=== PATIENT | female | born 1990 | race Caucasian/White ===

== ENCOUNTER → 2019-06-08 14:36 | Outpatient (BNVA) | payer SELFPAY | PROVIDERS: Family Provider Family Medicine; PCP Family Medicine; Visit Provider Anesthesiology | DX: G89.29 Other chronic pain (principal); M47.812 Spondylosis without myelopathy or radiculopathy, cervical region; M50.00 Cervical disc disorder with myelopathy, unspecified cervical region; M54.9 Dorsalgia, unspecified; F17.210 Nicotine dependence, cigarettes, uncomplicated; Z79.891 Long term (current) use of opiate analgesic | CPT/HCPCS: 99213; 99214 ==

== ENCOUNTER → 2019-08-10 14:23 | Outpatient (BNVA) | payer SELFPAY | PROVIDERS: Family Provider Family Medicine; PCP Family Medicine; Visit Provider Anesthesiology | DX: M50.00 Cervical disc disorder with myelopathy, unspecified cervical region (principal); M47.812 Spondylosis without myelopathy or radiculopathy, cervical region; M54.16 Radiculopathy, lumbar region; F17.210 Nicotine dependence, cigarettes, uncomplicated; Z79.891 Long term (current) use of opiate analgesic; Z71.6 Tobacco abuse counseling | CPT/HCPCS: 99214 ==

== ENCOUNTER → 2019-10-22 09:13 | Outpatient (BNVA) | payer MEDICAID, SELFPAY | PROVIDERS: Family Provider Family Medicine; PCP Family Medicine; Visit Provider Obstetrics & Gynecology | DX: Z30.9 Encounter for contraceptive management, unspecified (principal) | CPT/HCPCS: 81025 ==

== ENCOUNTER → 2019-11-30 12:45 | Outpatient (BNVA) | payer SELFPAY | PROVIDERS: Family Provider Family Medicine; PCP Family Medicine; Visit Provider Anesthesiology | DX: G89.29 Other chronic pain (principal); M50.00 Cervical disc disorder with myelopathy, unspecified cervical region; M47.812 Spondylosis without myelopathy or radiculopathy, cervical region; M54.41 Lumbago with sciatica, right side; M54.42 Lumbago with sciatica, left side; F17.210 Nicotine dependence, cigarettes, uncomplicated; Z79.891 Long term (current) use of opiate analgesic; Z71.6 Tobacco abuse counseling | CPT/HCPCS: 99214 ==

== ENCOUNTER → 2020-02-03 08:11 | Outpatient (BNVA) | payer SELFPAY | PROVIDERS: Family Provider Family Medicine; PCP Family Medicine; Visit Provider Anesthesiology | DX: G89.29 Other chronic pain (principal); M50.00 Cervical disc disorder with myelopathy, unspecified cervical region; M47.812 Spondylosis without myelopathy or radiculopathy, cervical region; F17.210 Nicotine dependence, cigarettes, uncomplicated; Z79.891 Long term (current) use of opiate analgesic | CPT/HCPCS: 99213; 99214 ==

== ENCOUNTER → 2020-03-29 13:08 | Outpatient (BNVA) | payer SELFPAY | PROVIDERS: Family Provider Family Medicine; PCP Family Medicine; Visit Provider Anesthesiology | DX: G89.29 Other chronic pain (principal); M50.00 Cervical disc disorder with myelopathy, unspecified cervical region; M47.812 Spondylosis without myelopathy or radiculopathy, cervical region; F17.210 Nicotine dependence, cigarettes, uncomplicated; Z79.891 Long term (current) use of opiate analgesic | CPT/HCPCS: 99212; 99214 ==

== ENCOUNTER → 2020-05-31 13:20 | Outpatient (BNVA) | payer SELFPAY | PROVIDERS: Family Provider Family Medicine; PCP Family Medicine; Visit Provider Anesthesiology | DX: G89.29 Other chronic pain (principal); M50.00 Cervical disc disorder with myelopathy, unspecified cervical region; M47.812 Spondylosis without myelopathy or radiculopathy, cervical region; M54.42 Lumbago with sciatica, left side; F17.210 Nicotine dependence, cigarettes, uncomplicated; Z79.891 Long term (current) use of opiate analgesic | CPT/HCPCS: 99213; 99214 ==

== ENCOUNTER → 2020-07-26 13:30 | Outpatient (BNVA) | payer SELFPAY | PROVIDERS: Family Provider Family Medicine; PCP Family Medicine; Visit Provider Anesthesiology | DX: G89.29 Other chronic pain (principal); M54.42 Lumbago with sciatica, left side; M50.00 Cervical disc disorder with myelopathy, unspecified cervical region; M47.812 Spondylosis without myelopathy or radiculopathy, cervical region; F17.210 Nicotine dependence, cigarettes, uncomplicated; Z79.891 Long term (current) use of opiate analgesic | CPT/HCPCS: 99214 ==

== ENCOUNTER → 2020-09-27 14:13 | Outpatient (BNVA) | payer SELFPAY | PROVIDERS: Family Provider Family Medicine; PCP Family Medicine; Visit Provider Nurse Practitioner | DX: G89.29 Other chronic pain (principal); M50.00 Cervical disc disorder with myelopathy, unspecified cervical region; M47.812 Spondylosis without myelopathy or radiculopathy, cervical region; M54.42 Lumbago with sciatica, left side; R11.0 Nausea; F17.210 Nicotine dependence, cigarettes, uncomplicated; Z79.891 Long term (current) use of opiate analgesic; Z71.6 Tobacco abuse counseling | CPT/HCPCS: 99214 ==

== ENCOUNTER → 2020-09-28 14:58 | Outpatient (BNVA) | payer MEDICAID, SELFPAY | PROVIDERS: Family Provider Family Medicine; PCP Family Medicine; Visit Provider Obstetrics & Gynecology | DX: Z30.9 Encounter for contraceptive management, unspecified (principal) | CPT/HCPCS: 81025 ==

== ENCOUNTER → 2020-11-29 14:29 | Outpatient (BNVA) | payer MEDICAID, SELFPAY | PROVIDERS: Family Provider Family Medicine; PCP Family Medicine; Visit Provider Nurse Practitioner | DX: G89.29 Other chronic pain (principal); M54.42 Lumbago with sciatica, left side; M54.41 Lumbago with sciatica, right side; M50.00 Cervical disc disorder with myelopathy, unspecified cervical region; M47.812 Spondylosis without myelopathy or radiculopathy, cervical region; R11.0 Nausea; F17.210 Nicotine dependence, cigarettes, uncomplicated; Z79.891 Long term (current) use of opiate analgesic; Z71.6 Tobacco abuse counseling | CPT/HCPCS: 99214 ==

== ENCOUNTER → 2021-01-31 15:02 | Outpatient (BNVA) | payer MEDICAID, SELFPAY | PROVIDERS: Family Provider Family Medicine; PCP Family Medicine; Visit Provider Nurse Practitioner | DX: G89.29 Other chronic pain (principal); M54.42 Lumbago with sciatica, left side; M54.41 Lumbago with sciatica, right side; M50.00 Cervical disc disorder with myelopathy, unspecified cervical region; M47.812 Spondylosis without myelopathy or radiculopathy, cervical region; R11.0 Nausea; F17.210 Nicotine dependence, cigarettes, uncomplicated; Z79.891 Long term (current) use of opiate analgesic | CPT/HCPCS: 99212; 99214 ==

== ENCOUNTER → 2021-03-28 14:55 | Outpatient (BNVA) | payer MEDICAID, SELFPAY | PROVIDERS: Family Provider Family Medicine; PCP Family Medicine; Visit Provider Anesthesiology | DX: G89.29 Other chronic pain (principal); M54.41 Lumbago with sciatica, right side; M50.00 Cervical disc disorder with myelopathy, unspecified cervical region; M47.812 Spondylosis without myelopathy or radiculopathy, cervical region; F17.210 Nicotine dependence, cigarettes, uncomplicated; Z79.891 Long term (current) use of opiate analgesic; Z71.6 Tobacco abuse counseling | CPT/HCPCS: 99214 ==

== ENCOUNTER → 2021-04-26 13:17 | Outpatient (BNVA) | payer SELFPAY | PROVIDERS: Family Provider Family Medicine; PCP Family Medicine; Visit Provider Anesthesiology | DX: G89.29 Other chronic pain (principal); M54.42 Lumbago with sciatica, left side; M47.812 Spondylosis without myelopathy or radiculopathy, cervical region; M50.00 Cervical disc disorder with myelopathy, unspecified cervical region; F17.210 Nicotine dependence, cigarettes, uncomplicated; F17.200 Nicotine dependence, unspecified, uncomplicated; Z79.891 Long term (current) use of opiate analgesic; Z71.6 Tobacco abuse counseling | CPT/HCPCS: 99214 ==

== ENCOUNTER → 2022-05-08 13:55 | Outpatient (BNVA) | payer SELFPAY | PROVIDERS: Family Provider Family Medicine; PCP Family Medicine; Visit Provider Family Medicine | DX: M54.40 Lumbago with sciatica, unspecified side (principal); G89.29 Other chronic pain; M54.42 Lumbago with sciatica, left side; M47.812 Spondylosis without myelopathy or radiculopathy, cervical region; Z79.891 Long term (current) use of opiate analgesic; M54.2 Cervicalgia; M50.00 Cervical disc disorder with myelopathy, unspecified cervical region; Z11.4 Encounter for screening for human immunodeficiency virus [HIV]; Z11.59 Encounter for screening for other viral diseases | CPT/HCPCS: 80053; 80307; 85025; 86803; 87806 ==

== ENCOUNTER → 2022-05-28 16:53 | Outpatient (BNVA) | payer SELFPAY | PROVIDERS: Family Provider Family Medicine; PCP Family Medicine; Visit Provider Family Medicine | DX: R39.9 Unspecified symptoms and signs involving the genitourinary system (principal); Z79.891 Long term (current) use of opiate analgesic | CPT/HCPCS: 80307; 81000 ==

== ENCOUNTER → 2024-04-19 13:00 | Outpatient (BNVA) | payer OTHER, SELFPAY | PROVIDERS: Family Provider Family Medicine; PCP Family Medicine; Visit Provider Family Medicine | DX: M79.671 Pain in right foot (principal); M79.672 Pain in left foot; M50.00 Cervical disc disorder with myelopathy, unspecified cervical region; M54.2 Cervicalgia; G89.29 Other chronic pain; M54.42 Lumbago with sciatica, left side; M54.41 Lumbago with sciatica, right side; Z79.891 Long term (current) use of opiate analgesic; F17.200 Nicotine dependence, unspecified, uncomplicated; E55.9 Vitamin D deficiency, unspecified; R79.89 Other specified abnormal findings of blood chemistry | CPT/HCPCS: 80053; 80061; 82306; 82607; 84443 ==

== ENCOUNTER → 2024-05-04 15:03 | Outpatient (BNVA) | payer OTHER, SELFPAY | PROVIDERS: Family Provider Family Medicine; PCP Family Medicine; Visit Provider Podiatrist Foot & Ankle Surgery | DX: M79.671 Pain in right foot (principal); M79.672 Pain in left foot; M21.621 Bunionette of right foot; M21.622 Bunionette of left foot | CPT/HCPCS: 73630 ==

== ENCOUNTER 2025-04-13 07:10 | Inpatient (IN) | payer OTHER, MEDICAID, SELFPAY ==
--- OUTSIDE RECORDS SUMMARY | 2024-03-20 03:00 | XMS_ITS ---
Author Organization [facility] Address [address] [place] [address] Care Team Providers Care [facility] Assistant Name Role Phone Pop Jamison Primary Care Provider Unavailabl e Migration, Provider Unavailable Unavailable REASON FOR VISIT [facility] Encounters Encounter Location Date Provider Diagnosis Migrated_Facility 0 0 03/20/2024 Provider Migration Plan Of Treatment No Information Progress Notes * Carol BERTRANDDOB:1990 (35 yo F)Acc No.[id number]:03/20/2024 Patient: Carol HESS :1990 A ge:34 Y S ex:Female Address:[address] [place] [address], [id number] Subjective: * Chief Complaints: * E MR-[facility]ain * * Date:
--- OUTSIDE RECORDS SUMMARY | 2024-03-21 03:00 | XMS_ITS ---
Author Organization [facility] Address [address] [place] [address] Care Team Providers Care Assistant Customer Service Manager Name Role Phone Pop Jamison Primary Care Provider Unavailabl e Migration, Provider Unavailable Unavailable REASON FOR VISIT [facility] Encounters Encounter Location Date Provider Diagnosis Migrated_Facility 0 0 03/21/2024 Provider Migration Plan Of Treatment No Information Progress Notes * Carol BERTRANDDOB:1990 (35 yo F)Acc No.[id number]:03/21/2024 Patient: Carol HESS :1990 A ge:34 Y S ex:Female Address:[address] [place] [address], [id number] Subjective: * Chief Complaints: * E MR-Hussain * * Date:
[2025-04-13] VITALS (77 sets, daily range): BP systolic 127–180; BP diastolic 66–115; PULSE 64–96; RESP 16–18; TEMP 36.6; O2SAT 96–98; BMI 36.0
--- OUTSIDE RECORDS SUMMARY | 2025-04-13 07:20 | XMS_ITS | Patient Health Record ---
Author Organization [facility] Address [address] [place] [address] Care Team Providers Care Db2 Dba Name Role Phone Pop Jamison Primary Care Provider Unavailabl e Reason For Referral No Information Plan Of Treatment No Information
--- OUTSIDE RECORDS SUMMARY | 2025-04-13 07:20 | XMS_ITS | Data Portability ---
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 She has previously delivered post-term with meconium staining, leading to her current concerns. There is no indication of amniotic fluid loss, and she notes active movements. The discussion involves timing in consideration of the holiday and possible induction if required. [email or web address] Not available 03/01/2025 16:21:53 03/15/2025 03/15/2025 35-year-old mgiuel love with history of presenting for care supervision. The is stable and without new complications. A GBS is scheduled for Group B Streptococcus screening. [email or web address] Not available 03/15/2025 16:32:31 03/22/2025 03/22/2025 35-year-old miguel love with history of a routine obstetric follow-up visit presenting with a need for signing tubal consent. GBS screening is negative with no other concerns reported or observed during this visit. [email or web address] Not available 03/22/2025 15:16:05 03/29/2025 03/29/2025 35-year-old miguel love with history of advanced presenting for routine 39-week follow-up. Reports Doddridge Dutton contractions and increased back pain. Cervical examination indicates 1 cm dilation without significant progression. [email or web address] Not available 03/29/2025 15:33:34 04/05/2025 04/05/2025 35-year-old miguel love with a history of low back pain, presenting with increased low back pain and vaginal pressure. The pain was more severe for approximately two hours but has decreased. Consideration for musculoskeletal strain or potential pre-labor contractions due to the patient's 39 weeks gestation status. [email or web address] Not available 04/06/2025 12:03:24 Plan of Treatment Reminders Order Date Submit Date Provider Last Modified By Organization Details Last Modified Time Details Appointments None recorded. Lab streptococc us group B, culture, vaginal or rectal 2024 025 [email or web address] 23 [employer] [facility], [address] [place] [address] [facility], [address] [place], [address], 11:56:05 Referral None recorded. Procedures None recorded. Surgeries None recorded. Imaging None recorded. Medication Orders None recorded. Patient TargetsNo targets recorded. Patient Instructions Encounter Date Encounter Id Patient Instructions Last Modified By Organization Details Last Modified Time 03/01/2025 [id number] - Monitor movements daily - Be aware of any signs of fluid loss - Plan for potential induction if not delivered by the 39th week - Attend appointments as scheduled - Contact the clinic if there are any changes or concerns [email or web address] Not available 03/01/2025 16:25:33 I discussed with the patient her concerns regarding the timing of her delivery in relation to the upcoming . We explored her history of post-term delivery with meconium-stained amniotic fluid and the risks associated with going past her due date. I explained the potential for scheduling an induction if she does not go into labor naturally by the 39th week, as this is the earliest safe window for intervention. These plans aim to avoid hospitalization during the holiday and address her previous experiences. Continued activity and monitoring were emphasized as part of routine care. [email or web address] Not available 03/01/2025 16:21:56 03/15/2025 [id number] - Come in for yo ur TBS test for Group B Streptococcus. - Continue regular check-ups as planned. - Expect to start coming in for visits weekly as you get closer to your due date. - Call us if you feel any new symptoms or have concerns about your . [email or web address] Not available 03/15/2025 16:28:33 I reviewed the p antwon with the patient, which includes scheduling a TBS to check for any Group B Streptococcus colonization. We discussed the potential need for antibiotics before delivery if results indicate colonization. I explained the importance of this testing and what it could mean for her delivery. The patient expressed understanding and consented to the test. We agreed to increase the frequency of visits to weekly as the delivery approaches, ensuring close monitoring of her . [email or web address] Not available 03/15/2025 16:28:33 03/22/2025 [id number] - Attend weekly follow-up appointments - Monitor for any changes or new symptoms and report if they occur - Understand your options and surgical consent for tubal ligation - Reach out if experiencing any unusual symptoms or concerns [email or web address] Not available 03/22/2025 14:55:03 During the visit , I discussed with the patient the negative GBS screening and the implications for her care. We also reviewed the tubal consent process, confirming her autonomy in making informed decisions about her reproductive health. The option and consent for tubal ligation were comprehensively addressed. The patient's cervix was not accessible during the examination due to the position, which we noted to monitor over subsequent visits. I informed her of the necessity for continued weekly follow-ups at this stage of her obstetric care. [email or web address] Not available 03/22/2025 14:55:04 03/29/2025 [id number] - Rest when experiencing back pain. - Monitor Doddridge Dutton contractions; note any changes in frequency or intensity. - Look for signs of labor such as more regular contractions or bloody show, and contact if noticed. - Return for follow-up as scheduled or if symptoms worsen. [email or web address] Not available 03/29/2025 12:20:13 During the consultation, I discussed the patient's current gestational status and the potential for membrane stripping, explaining that it might assist in initiating labor if the cervix is favorable. I reviewed her experience with Doddridge Dutton contractions, noting that they are common at this stage of , and emphasized monitoring for any changes that might suggest true labor. The patient was reassured regarding the absence of symptoms like spotty vision which could indicate complications, such as preeclampsia. We also discussed measures for managing back pain, recommending rest and supportive posture. The patient understood the information provided and agreed to continue monitoring her symptoms. [email or web address] Not available 03/29/2025 12:20:13 04/05/2025 [id number] - Use a heating pad to alleviate back pain. - Continue normal daily activities and avoid strenuous tasks. - Monitor for regular contractions every 3-5 minutes. - Contact the office if symptoms worsen or new symptoms develop. - Attend the scheduled appointment next Friday. [email or web address] Not available 04/05/2025 09:44:06 During the discussion, I reviewed the potential causes of increased low back pain and vaginal pressure with the patient, considering her 39-week gestational status. I advised monitoring for regular contractions to distinguish between musculoskeletal strain and potential labor. I explained the usage of a heating pad for relief and the maintenance of normal activities. I emphasized the importance of contacting our office if regular contractions develop or if other concerning symptoms appear. We discussed schedule options for the follow-up appointment, and the patient preferred Friday morning next week. All questions were addressed, and consent for the proposed plan was obtained. [email or web address] Not available 04/05/2025 09:44:06 Reason for Referral None Reported. Results Created Date Observation Date Name Description Value Unit Range Abnormal Flag Note LastModifiedBy Organization Detail LastModifiedTime 02/02/2002/01/2025 gluco se desiree ance test, gesta krishna l, 3-yuliya r Fasting 88 Not Available [facility] ([facility]) [address] [place], [address], 01/20/2025 12:09:10 02/02/20 25 02/01/2025 gluco se desiree ance test, gesta krishna l, 3-yuliya r 1-Hour 203 Not Available [facility] ([facility]) [address] [place], [address], 01/20/2025 12:09:10 02/02/20 25 02/01/2025 gluco se desiree ance test, gesta krishna l, 3-yuliya r 2-Hour 130 Not Available [facility] ([facility]) [address] [place], [address], 01/20/2025 12:09:10 02/02/20 25 02/01/2025 gluco se desiree ance test, brooke keller l, 3-yuliya r 3-Hour 61 Not Available [facility] ([facility]) [address] [place], [address], 01/20/2025 12:09:10 03/15/20 25 03/19/2025 STREP TOCOC CUS, GROUP B CULTU RE streptococcu s, group B culture SEE NOTE STREP TOCOC CUS, GROUP B CULTU RE Micro Numbe r: [id number] Test Statu s: Final Speci men Sourc e: Vagin al/an orect al Speci men Quali ty: Adequ ate Resul t: No group B Strep tococ cus isola randal Note per CDC guide lines optim al recov js is achie rocio by swabb ing both the lower vagin a and rectu m (thro ugh the anal sphin cter) . Not Available [employer] [facility] [address] [place], [address], 03/19/2025 09:46:29 Result Notes None recorded. Problems Name Problem SNOMED Code Status Onset Date Resolution Date Notes Provider Name and Address Organization Details Recorded Time Asthma 850837807 Active 2022 Asthma; 3 6:06PM by Fabio Wesley, Office Visit; Promoted; acuity set as *; Not Available [facility] 3 03:07:35 Fracture of humerus 47957632 Active 2022 fx left humerus, internal fixation; 3 6:06PM by Fabio Wesley, Office Visit; Promoted; acuity set as *; Not Available [facility] 3 03:07:37 02066001 Active 2024 Marine Mcgowan [facility] 5 12:24:20 Oligomeno rrhea 55287799 Active 2024 Russell Flores MD [address] [place] [address], [address] , [facility] 13:01:57 Chronic back pain 500924079 Active 2024 Russell Flores MD [address] [place] [address], [address] , [facility] 11:42:52 Blood pressure above reference range 58715691 Active 2024 Russell Flores MD [address] [place] [address], [address] , [facility] 11:45:01 Hypertens ion complicat ing 90983508856 102 Active 2024 Russell Flores MD [address] [place] [address], [address] , [facility] 11:45:04 Gestation period, 21 weeks 08077464 Active 2024 Russell Flores MD [address] [place] [address], [address] , [facility] 13:48:35 Migraine 51893016 Active 2024 Russell Flores MD [address] [place] [address], [address] , [facility] 09:39:50 Gestation period, 25 weeks 24856547 Active 2024 Russell Flores MD [address] [place] [address], [address] , [facility] 09:40:23 Gestation period, 25 weeks 24215923 Active 2024 Russell Flores MD [address] [place] [address], [address] , [facility] 09:40:22 Gestation period, 28 weeks 33684491 Active 2024 Russell Flores MD [address] [place] [address], [address] [place] [address] , [facility] 08:08:13 Gestation period, 28 weeks 55232817 Active 2024 Russell Flores MD [address] [place] [address], [address] , [facility] 5 08:08:13 Gestation period, 30 weeks 53050616 Active 2024 Russell Flores MD [address] [place] [address], [address] [place] [address] , [facility] 15:13:39 Gestation period, 32 weeks 5541831 Active 2024 Russell Flores MD [address] [place] [address], [address] , [facility] 09:52:00 Gestation period, 37 weeks 33999474 Active 2024 Russell Flores MD [address] [place] [address], [address] , [facility] 15:15:50 Gestation period, 39 weeks 68262069 Active 2024 Russell Flores MD [address] [place] [address], [address] , [facility] 12:03:40 Problem Notes None recorded. Procedures Surgical History Date Name Laterality Status Provider Name and Address Organization Details Recorded Time 05/26/2023 Date of Last Pap Smear completed [facility] 11/02/2024 12:14:36 Imaging Results None recorded. Procedure Notes None recorded. Medical Equipment None Reported. Allergies Allergen ID Allergen Name Allergen Category Reaction Reaction Severity Criticality Documentation Date Start Date Code Code System Note Provider Name and Address Organization Details Recorded Time 08188 gabapenti n medicatio n itching Not available Not available 11/02/[address] [facility] 5 12:13:01 Medications Name Sig Start Date Stop Date Status Note LastModified by Organization Details LastModified Time methadone 10 mg tablet TAKE 1 TABLET BY MOUTH EVERY 4 HOURS FOR 30 DAYS active Not Available Not Available No t Available Depo-Prov era 150 mg/mL intramusc ular suspensio n every 3 months 11/02 completed Recorded 07/11/19 4:05PM by Russell Flores MD, Office Visit; Refill Quantity : 1; Millilit er; Not Available Not Available Not Available promethaz ine 25 mg tablet TAKE 1 TABLET BY MOUTH EVERY 6 HOURS NEEDED FOR NAUSEA AND VOMITING active Not Available Not Available No t Available methadone every four hours 11/02 completed do not fill 3/3 and no more refills from this office.; Recorded 07/16/19 23 8:10AM by Russell Flores MD, Annotati on/Adden dum; Refill Quantity : 0; Not Available Not Available Not Available daily active Not Available Not Avai lable Not Available Xyzal 5 mg tablet Take 1 tablet every day by oral route. 11/30 completed Not Available Not Available Not Available Vitals Date Recorded Body height Body mass index (BMI) Body weight Oxygen saturation Oxygen saturation in Arterial blood by Pulse oximetry Heart rate Respiratory rate Body temperature Systolic And Diastolic Provider Name and Address Organization Details Last Updated DateTime 5 157.48 cm 36 kg/m2 10645.7 g 97 % 97 % 85 /min 20 /min 97.3 [degF] 128/70 mm[Hg] Saundra Wilkerson [facility] 5 16:04:31 Date Recorded Body height Body mass index (BMI) Body weight Oxygen saturation Oxygen saturation in Arterial blood by Pulse oximetry Heart rate Respiratory rate Body temperature Systolic And Diastolic Provider Name and Address Organization Details Last Updated DateTime 5 157.48 cm 35.7 kg/m2 16165.9 5 g 98 % 98 % 79 /min 18 /min 97.2 [degF] 126/78 mm[Hg] Saundra Wilkerson [facility] 5 15:56:28 Date Recorded Body height Body mass index (BMI) Body weight Body temperature Oxygen saturation Oxygen saturation in Arterial blood by Pulse oximetry Heart rate Systolic And Diastolic Provider Name and Address Organization Details Last Updated DateTime 5 157.48 cm 36.2 kg/m2 31395.2 9 g 97.6 [degF] 97 % 97 % 84 /min 150/88 mm[Hg] [facility] 5 14:40:14 Date Recorded Body height Body mass index (BMI) Body weight Oxygen saturation Oxygen saturation in Arterial blood by Pulse oximetry Body temperature Heart rate Systolic And Diastolic Provider Name and Address Organization Details Last Updated DateTime 5 157.48 cm 36 kg/m2 56557.7 g 96 % 96 % 97.5 [degF] 93 /min 128/84 mm[Hg] [facility] 5 12:07:12 Date Recorded Body height Body mass index (BMI) Body weight Body temperature Oxygen saturation Oxygen saturation in Arterial blood by Pulse oximetry Heart rate Systolic And Diastolic Provider Name and Address Organization Details Last Updated DateTime 5 157.48 cm 35.8 kg/m2 72381.1 g 97.5 [degF] 98 % 98 % 81 /min 140/84 mm[Hg] [facility] 5 09:27:32 Social History Question Answer Notes LastModified by Organizat ion Details LastModified Time Tobacco Smoking Status Current Every Day Smoker [facility] 11/02/2024 12:23:42 What Is Your Level Of Caffeine Consumption? Occasional [email or web address] Information not available 11/02/2024 Do You Or Have You Ever Used Marijuana? Never Used [email or web address] Information not available 03/01/2025 What Was The Date Of Your Most Recent Tobacco Screening? 04/05/2025 [email or web address] Information not available 04/05/2025 At What Age Did You Start Smoking Tobacco? 16 Information not available 01/18/2025 How Much Tobacco Do You Smoke? 0.5 PPD Information not available 11/02/2024 Sex: Unknown Functional Status Question Answer Note LastModified by Organizat ion Details LastModified Time Do you use any illicit or recreational drugs? No [email or web address] Information not available 11/02/2024 What is your level of alcohol consumption? None [email or web address] Information not available 11/02/2024 Mental Status None recorded. Family History Nothing Reported. Medical History No medical history recorded. Gynecological History Statement/Question Response Abnormal Pap N Date of LMP STIs/STDs N Date of Last Pap Smear 05/26/2023 Current Control Method [employer] Promotion Analyst a Age at First Child 18 Obstetrics History GPAL:G 6 P 4 0 0 4 Type Value Full Term 4 Living 4 Total 6 Immunizations Vaccine Type Date Status Note Provider Nam e and Address Organization Details Recorded Time Influenza, split virus, trivalent, preservative 1 completed Not Available [facility] 12/21/2022 02:50:25 Tdap [address] [facility] 02/15/2025 17:59:06 RSV, bivalent, protein subunit RSVpreF, diluent reconstituted, 0.5 mL, PF [address] [facility] 02/15/2025 17:59:06 DTP-Hib 1 completed Not Available [facility] 04/05/2025 09:21:33 OPV, trivalent 1 completed Not Available [facility] 04/05/2025 09:21:33 Hep B, unspecified formulation 3 completed Not Available [facility] 04/05/2025 09:21:33 OPV, trivalent 3 completed Not Available [facility] 04/05/2025 09:21:33 DTP-Hib 3 completed Not Available [facility] 04/05/2025 09:21:33 DTP-Hib 3 completed Not Available [facility] 04/05/2025 09:21:33 Hep B, unspecified formulation 3 completed Not Available [facility] 04/05/2025 09:21:33 MMR 3 completed Not Available [facility] 04/05/2025 09:21:33 Hep B, unspecified formulation 3 completed Not Available [facility] 04/05/2025 09:21:33 MMR 6 completed Not Available [facility] 04/05/2025 09:21:33 OPV, trivalent 6 completed Not Available [facility] 04/05/2025 09:21:33 DTaP 6 completed Not Available [facility] 04/05/2025 09:21:33 Td (adult), 2 Lf tetanus toxoid, preservative free, adsorbed 6 completed Not Available [facility] 04/05/2025 09:21:33 Tdap 6 completed Not Available [facility] 04/05/2025 09:21:33 Influenza, split virus, trivalent, PF 6 completed Not Available [facility] 04/05/2025 09:21:33 Past Encounters Encounter ID Performer Location Encounter Start Date Encounter Closed Date Diagnosis/Indication Diagnosis SNOMED-CT Code Diagnosis ICD10 Code Diagnosis IMO Codes Diagnosis Note [id number] Russell Flores MD [facility] ([facility]) [address] [place] [phone] 11/02/2024 12:00:32 11/02/2024 13:27:02 Normal 72534902 Z34.90 Counseled the patient on new . Heart tones were obtained today which is consistent with a history of last intercours e of June and places her somewhere between 16 to 20 weeks. Will obtain ultrasound to confirm dating. Will go ahead and proceed with lab work today. Anticipate guidance provided. Chronic back pain 085067 002 M54.9 G89.29 00006383 Discussed the risks of staying on methadone throughout her especially after delivery. Hypertensi on complicating 4015156793 9102 O16.9 15036574 Patient blood pressure is mildly elevated today. Encouraged the patient to check her blood pressure twice daily and keep a log. Educated patient on concerning blood pressure levels. [id number] Russell Flores MD [facility] ([facility]) [address] [place] [phone] 5 11/23/2024 09:16:54 11/24/2024 13:40:51 Normal in multigravida 4994464077 69058 Z34.80 [id number] Counseled the patient on new . Heart tones were obtained today which is consistent with a history of last intercours e of June and places her somewhere between 16 to 20 weeks. Will obtain ultrasound to confirm dating. Will go ahead and proceed with lab work today. Anticipate guidance provided. [id number] Russell Flores MD [facility] ([facility]) [address] [place] [phone] 11/30/2024 15:39:50 11/30/2024 16:39:51 Normal in multigravida 6778493382 13981 Z34.80 [id number] No concerns at today's visit. Anticipato ry guidance provided. Some of the anatomy is not well-visua lized, so we will do a follow-up ultrasound . Gestation period, 21 weeks 64922243 Z3A.21 8106021 [id number] Russell Flores MD [facility] ([facility]) [address] [place] [id number] 5 12/21/2024 15:48:44 12/22/2024 09:38:37 ultrasound scan abnormal 1497186263 9109 O28.3 10911205 [id number] Russell Flores MD [facility] ([facility]) [address] [place] [phone] 01/03/2025 16:40:23 01/04/2025 15:45:04 Second trimester 84843708 Z34.92 [id number] Awaited the patient and counseled the patient on headaches. We will monitor at this time. Anticipato ry guidance provided. Will check glucose tolerance test today. Migraine 34813586 G43.90 9 [id number] Counseled the patient on conservati ve measures for migraine prevention . Gestation period, 25 weeks 60760805 Z3A.25 0364870 [id number] Russell Flores MD [facility] ([facility]) [address] [place] [phone] 5 01/19/2025 09:30:37 01/26/2025 04:00:59 [id number] Russell Flores MD [facility] ([facility]) [address] [place] [id number] 5 01/18/2025 15:37:38 01/18/2025 16:22:17 Third trimester 80242168 Z34.93 [id number] Patient appears to be progressin g as expected. Anticipato ry guidance provided. Gestation period, 28 weeks 16569056 Z3A.28 6346517 [id number] Russell Flores MD [facility] ([facility]) [address] [place] [phone] 5 02/01/2025 16:04:01 02/01/2025 16:44:03 Third trimester 28902618 Z34.93 056901 Patient appears to be progressin g as expected. The patient passed her 3-hour glucose tolerance test but there is concerns that she is borderline diabetic. Discussed dietary and lifestyle modificati ons that would assist in this. Anticipato ry guidance provided. Gestation period, 30 weeks 00798665 Z3A.30 2746636 [id number] Russell Flores MD [facility] ([facility]) [address] [place] [id number] 5 02/15/2025 15:28:22 02/15/2025 16:58:28 Normal in multigravida 0427365990 17565 Z34.80 10140775 Anticipato ry guidance provided. Patient was agreeable to vaccines today. Gestation period, 32 weeks 1004976 Z3A.32 2700443 [id number] Russell Flores MD [facility] ([facility]) [address] [place] [id number] 5 03/01/2025 15:59:03 03/01/2025 16:28:11 Third trimester 29872823 Z34.93 723410 - Concerns about delivery timing due to Thanks[place] ng discussed- History of post-term delivery with meconium noted- Plan for possible induction at 39-40 weeks considered - Continue to monitor activity and fluid status [id number] Russell Flores MD [facility] ([facility]) [address] [place] [phone] 5 03/15/2025 15:48:57 03/15/2025 16:32:58 Third trimester 38608683 Z34.93 327269 - Concerns about delivery timing due to Cristopher ng discussed- History of post-term delivery with meconium noted- Plan for possible induction at 39-40 weeks considered - Continue to monitor activity and fluid status [id number] Russell Flores MD [facility]) [address] [place] [phone] 5 03/22/2025 14:28:21 03/22/2025 14:58:50 Normal in multigravida [id number] Z34.80 [id number] Anticipato ry guidance provided. Patient was agreeable to vaccines today. Gestation period, 37 weeks [id number] Z3A.37 [id number] - Tubal ligation consent obtained - GBS confirmed negative - Weekly follow-ups advised [id number] Russell Flores MD [facility] ([facility]) [address] [place] [phone] 03/29/2025 11:58:17 03/29/2025 12:26:24 Normal in multigravida [id number] Z34.80 [id number] Anticipato ry guidance provided. Labor precaution s given. [id number] Russell Flores MD [facility] ([facility]) [address] [place] [phone] 04/05/2025 09:21:15 04/05/2025 09:58:30 Normal in multigravida [id number] Z34.80 [id number] Back Pain: - Continue to monitor symptoms and use a heating pad for relief. - The patient is advised to maintain normal activities and to report if symptoms worsen or if contractio ns become more frequent. Possible Pre-Labor Symptoms: - Scheduled follow-up appointmen t on Friday. - The patient is advised to contact the office if regular contractio ns occur or if additional symptoms arise. Gestation period, 39 weeks [id number] Z3A.39 [id number] Health Concerns Section Related Observation LastModified by Organization Detai ls LastModified Time None Recorded Concern Status LastModified by Organization Details LastModified Time None Recorded Advance Directives Directive None Recorded Payers Insurance Date Sequence Insurance Name Policy Number Policy Ferrell Covered Member ID Ferrell Member ID Guarantor Name 04/09/2025 1 [employer] - [place] [id number] Carol Shafer [id number] Carol Shafer 01/05/2025 2 [place] Carol Shafer [id number] Carol Shafer Notes Date Note Type Note Provider Name and Address Organization Details Recorded Time 03/01/20 text/htm heather slaughter ob routineReported by PatientHPIFor associated symptoms, patient reportsno abdominal pain,no cramping,no contractions,normal movement,no bleeding,no rom,no vaginal discharge,no vaginal/vulvar itching or irritation,no dysuria,no urgency,no hematuria,no fever,no nausea,no emesis,no constipation,no diarrhea/loose stool,no visual changes,no dizziness,no decrease in urine volume,no breathlessness, andno hyperreflexia.ROS as noted in the HPI The patient is a 35 year old female presenting with a third trimester . She expresses concern about delivering close to the and desires to have the delivery before then if possible. She recalls previous experiences of delivering past the due date, associated with meconium-stained amniotic fluid. She has not noticed any loss of fluid this time, with movements remaining active. The patient engages in a discussion regarding planning, particularly considering the timing around her due date and potential induction if needed. Russell Flores MD [address] [place] [address], [phone], [facility] 03/01/2025 16:25:49 03/15/20 25 text/htm heather slaughter ob routineReported by PatientHPIFor associated symptoms, patient reportsurgencyandedemabut reportsno abdominal pain,no cramping,no contractions,normal movement,no bleeding,no rom,no vaginal discharge,no vaginal/vulvar itching or irritation,no dysuria,no frequency,no hematuria,no fever,no nausea,no emesis,no constipation,no diarrhea/loose stool,no visual changes,no headache,no dizziness,no decrease in urine volume,no breathlessness, andno hyperreflexia. The patient is a 35-year-old female presenting with supervision. She reports no new symptoms or complications. Plans are in place for a TBS for Group B Streptococcus checking, sustaining the routine nature of her previous evaluations. - Tests and Diagnostics: GBS to check for Group B Streptococcus colonization is planned. Russell Flores MD [address] [place] [address], [phone], [facility] 03/15/2025 16:32:46 03/22/20 25 text/htm l jr ob routineReported by PatientHPIFor associated symptoms, patient reportsfrequency,edema,headac he, andbreathlessnessbut reportsno abdominal pain,no cramping,no contractions,normal movement,no bleeding,no rom,no vaginal discharge,no vaginal/vulvar itching or irritation,no dysuria,no urgency,no hematuria,no fever,no nausea,no emesis,no constipation,no diarrhea/loose stool,no visual changes,no dizziness,no decrease in urine volume, andno hyperreflexia. The patient is a 35-year-old female presenting with a 1-week routine obstetric visit. She signed tubal consent and has tested GBS Negative. - GBS Screening: Negative Russell Flores MD [address] [place] [address], [phone], [facility] 03/22/2025 15:16:38 03/29/20 25 text/htm l jr ob routineReported by PatientHPIFor associated symptoms, patient reportscontractions,edema,vis ual changes,headache, andbreathlessnessbut reportsno abdominal pain,no cramping,normal movement,no bleeding,no rom,no vaginal discharge,no vaginal/vulvar itching or irritation,no dysuria,no frequency,no urgency,no hematuria,no fever,no nausea,no emesis,no constipation,no diarrhea/loose stool,no dizziness,no decrease in urine volume, andno hyperreflexia. The patient is a 35-year-old female presenting with follow-up at 39 weeks and 3 days gestation. Over the last week, she reports experiencing Eduardo Dutton contractions and increased back pain. No bloody show has been noted, and she denies any symptoms indicative of preeclampsia such as spotty vision or high blood pressure-related symptoms. She is interested in membrane sweeping today. Russell Flores MD [address] [place] [address], [phone], [facility] 03/29/2025 15:34:05 04/05/20 25 text/htm l jr ob routineReported by PatientHPIFor associated symptoms, patient reportsabdominal pain,cramping,frequency,urgen cy,edema,decreased urine volume, andbreathlessnessbut reportsno contractions,normal movement,no bleeding,no rom,no vaginal discharge,no vaginal/vulvar itching or irritation,no dysuria,no hematuria,no fever,no nausea,no emesis,no constipation,no diarrhea/loose stool,no visual changes,no headache,no dizziness, andno hyperreflexia.ROS as noted in the HPI The patient is a 35-year-old female presenting with vaginal pressure and increased low back pain that started at 4 am this morning. The pain was initially severe for about two hours and has since decreased in intensity. She reports no symptoms of bleeding, discharge, or spotting. She denies significant changes since the last visit other than the recent symptoms described. Rusesll Flores MD [address] [place] [address], [phone], [facility] 04/06/2025 12:04:02 OBGyn Episode Ob Episode Information Episode Created Date Number of Fetuses Patient Bloodtype Patient rh Status Prepregnancy Weight lbs Domestic Partner Domestic Partner Phone Father Name Label Coder Status 11/03/19 1 CLOSED Fetus Data First Name Last Name Admitted to NICU Weight (g) Sex Living Outcome Pediatric Complications Fetus ID Race Codes Race Delivery Type 2778.25 1 F Full Term 8543 VAGINAL Kavin Calculation Initial Kavin Date Initial Exam Date Initial Exam Provider Initial Ultrasound Date Last Menstrual Period Date Ultra Sound Weeks Gestation 0 Eighteen To Twenty Week Kavin Update Ultra Sound Date Fundal Height At Umbil Quickening Date Ultra Sound Latest Weeks Gestation Final Kavin Confirmed By Final Kavin Confirmed Date Final Kavin Date Ultra Sound Latest Days Gestation 0 0 Menstrual History Last Menstrual Date Menses Monthly On Bcp Conception Prior Menses Frequency Hcg Plus Date Menarche Onset Age Delivery Information Delivery Date Delivery Type Labor Anesthesia Weeks Gestation Incision Type Labor Labor Length Hrs Delivered By Post Complications Tubal Sterilization Discharge Date Comments 1 [facility] idural 42 [phone] Discharge Information Feeding Method Contraceptive Method Maternal HG B and HCT Levels Ob Episode Information Episode Created Date Number of Fetuses Patient Bloodtype Patient rh Status Prepregnancy Weight lbs Domestic Partner Domestic Partner Phone Father Name Label Coder Status 11/03/19 25 1 CLOSED Fetus Data First Name Last Name Admitted to NICU Weight (g) Sex Living Outcome Pediatric Complications Fetus ID Race Codes Race Delivery Type 2664.85 3 M Full Term 8545 VAGINAL Kavin Calculation Initial Kavin Date Initial Exam Date Initial Exam Provider Initial Ultrasound Date Last Menstrual Period Date Ultra Sound Weeks Gestation 0 Eighteen To Twenty Week Kavin Update Ultra Sound Date Fundal Height At Umbil Quickening Date Ultra Sound Latest Weeks Gestation Final Kavin Confirmed By Final Kavin Confirmed Date Final Kavin Date Ultra Sound Latest Days Gestation 0 0 Menstrual History Last Menstrual Date Menses Monthly On Bcp Conception Prior Menses Frequency Hcg Plus Date Menarche Onset Age Delivery Information Delivery Date Delivery Type Labor Anesthesia Weeks Gestation Incision Type Labor Labor Length Hrs Delivered By Post Complications Tubal Sterilization Discharge Date Comments 5 [facility] idural 39 11 Discharge Information Feeding Method Contraceptive Method Maternal HG B and HCT Levels Ob Episode Information Episode Created Date Number of Fetuses Patient Bloodtype Patient rh Status Prepregnancy Weight lbs Domestic Partner Domestic Partner Phone Father Name Label Coder Status 11/03/19 25 1 O Positive 190 Alfonso Redd OPEN Fetus Data First Name Last Name Admitted to NICU Weight (g) Sex Living Outcome Pediatric Complications Fetus ID Race Codes Race Delivery Type 8547 Problems Problem Notes Problem Name Start Date End Date Resolution Snomed Code Not e Gestation period, 28 weeks 01/24/2025 90 [id number] Gestation period, 25 weeks 01/04/2025 72 [id number] Kavin Calculation Initial Kavin Date Initial Exam Date Initial Exam Provider Initial Ultrasound Date Last Menstrual Period Date Ultra Sound Weeks Gestation 11/02/2024 0 Eighteen To Twenty Week Kavin Update Ultra Sound Date Fundal Height At Umbil Quickening Date Ultra Sound Latest Weeks Gestation Final Kavin Confirmed By Final Kavin Confirmed Date Final Kavin Date Ultra Sound Latest Days Gestation 0 04/12/20 25 0 Pre-petra Flowsheet Flowsheet Date 11/02/2024 Branham Score Blood Edema Fundus Height Fundus Units Glucose Ketones Leukocytes Nitrite Labor Signs Protein Cervic Dilation Cervic Effacement Cervic Station Type Weight in lbs Pre/Post Dialysis Refused Weight 190.809813287323 BP Diastolic BP Location Tested BP Systolic BP Type 84 142 Fetus Heart Rate Present A 160 Fetus Movement A Yes Comments Flowsheet Date 11/23/2024 Branham Score Blood Edema Fundus Height Fundus Units Glucose Ketones Leukocytes Nitrite Labor Signs Protein Cervic Dilation Cervic Effacement Cervic Station Type Weight in lbs Pre/Post Dialysis Refused BP Diastolic BP Location Tested BP Systolic BP Type Fetus Heart Rate Present Fetus Movement Comments Flowsheet Date 11/30/2024 Branham Score Blood Edema Fundus Height Fundus Units Glucose Ketones Leukocytes Nitrite Labor Signs Protein Cervic Dilation Cervic Effacement Cervic Station none none Negative neg Type Weight in lbs Pre/Post Dialysis Refused Weight 190.284752561297 BP Diastolic BP Location Tested BP Systolic BP Type 84 128 Fetus Heart Rate Present A 160 Fetus Movement A Yes Comments Flowsheet Date 12/21/2024 Branham Score Blood Edema Fundus Height Fundus Units Glucose Ketones Leukocytes Nitrite Labor Signs Protein Cervic Dilation Cervic Effacement Cervic Station Type Weight in lbs Pre/Post Dialysis Refused BP Diastolic BP Location Tested BP Systolic BP Type Fetus Heart Rate Present Fetus Movement Comments Flowsheet Date 01/03/2025 Branham Score Blood Edema Fundus Height Fundus Units Glucose Ketones Leukocytes Nitrite Labor Signs Protein Cervic Dilation Cervic Effacement Cervic Station 26 cm none none Negative 1+ Type Weight in lbs Pre/Post Dialysis Refused Weight 195.656856692590 BP Diastolic BP Location Tested BP Systolic BP Type 72 110 Fetus Heart Rate Present A 170 Fetus Movement A Yes Comments Flowsheet Date 01/18/2025 Branham Score Blood Edema Fundus Height Fundus Units Glucose Ketones Leukocytes Nitrite Labor Signs Protein Cervic Dilation Cervic Effacement Cervic Station 1+ 29 cm none none Negative 1+ Type Weight in lbs Pre/Post Dialysis Refused With clothes 198.147696384744 BP Diastolic BP Location Tested BP Systolic BP Type 64 L arm 114 sitting Fetus Heart Rate Present A 165 Fetus Movement A Yes Comments swelling, shortness of breat h and headache Flowsheet Date 01/19/2025 Branham Score Blood Edema Fundus Height Fundus Units Glucose Ketones Leukocytes Nitrite Labor Signs Protein Cervic Dilation Cervic Effacement Cervic Station Type Weight in lbs Pre/Post Dialysis Refused BP Diastolic BP Location Tested BP Systolic BP Type Fetus Heart Rate Present Fetus Movement Comments Flowsheet Date 02/01/2025 Branham Score Blood Edema Fundus Height Fundus Units Glucose Ketones Leukocytes Nitrite Labor Signs Protein Cervic Dilation Cervic Effacement Cervic Station trace 31 cm none trace Negative 1+ Type Weight in lbs Pre/Post Dialysis Refused With clothes 196.600665635127 BP Diastolic BP Location Tested BP Systolic BP Type 60 L arm 112 sitting Fetus Heart Rate Present A 150 Fetus Movement A Yes Comments urinary frequency and ankle edema Flowsheet Date 02/15/2025 Branham Score Blood Edema Fundus Height Fundus Units Glucose Ketones Leukocytes Nitrite Labor Signs Protein Cervic Dilation Cervic Effacement Cervic Station trace 33 cm none Negative 1+ Type Weight in lbs Pre/Post Dialysis Refused With clothes 197.227567790633 BP Diastolic BP Location Tested BP Systolic BP Type 68 L arm 106 sitting Fetus Heart Rate Present A 150 Fetus Movement A Yes Comments Flowsheet Date 03/01/2025 Branham Score Blood Edema Fundus Height Fundus Units Glucose Ketones Leukocytes Nitrite Labor Signs Protein Cervic Dilation Cervic Effacement Cervic Station 1+ 35 cm none Negative trace Type Weight in lbs Pre/Post Dialysis Refused With clothes 197.673025336647 BP Diastolic BP Location Tested BP Systolic BP Type 70 L arm 128 sitting Fetus Heart Rate Present A 135 Fetus Movement A Yes Comments ankle edema, PARK, urinary lacy quency Flowsheet Date 03/15/2025 Branham Score Blood Edema Fundus Height Fundus Units Glucose Ketones Leukocytes Nitrite Labor Signs Protein Cervic Dilation Cervic Effacement Cervic Station 1+ 35 cm none none Negative 1+ Type Weight in lbs Pre/Post Dialysis Refused With clothes 195.003133397674 BP Diastolic BP Location Tested BP Systolic BP Type 78 L arm 126 sitting Fetus Heart Rate Present A 125 Fetus Movement A Yes Comments urinary urgency and ankle ed efren Flowsheet Date 03/22/2025 Branham Score Blood Edema Fundus Height Fundus Units Glucose Ketones Leukocytes Nitrite Labor Signs Protein Cervic Dilation Cervic Effacement Cervic Station none none Negative 1+ 1cm 30% - 3 Type Weight in lbs Pre/Post Dialysis Refused Weight 198.128167940634 BP Diastolic BP Location Tested BP Systolic BP Type 88 150 Fetus Heart Rate Present A 120 Fetus Movement A Yes Comments Flowsheet Date 03/29/2025 Branham Score Blood Edema Fundus Height Fundus Units Glucose Ketones Leukocytes Nitrite Labor Signs Protein Cervic Dilation Cervic Effacement Cervic Station none none 2+ 1cm 30% -3 Type Weight in lbs Pre/Post Dialysis Refused Weight 197.696236862811 BP Diastolic BP Location Tested BP Systolic BP Type 84 128 Fetus Heart Rate Present A 140 Fetus Movement A Yes Comments Flowsheet Date 04/05/2025 Branham Score Blood Edema Fundus Height Fundus Units Glucose Ketones Leukocytes Nitrite Labor Signs Protein Cervic Dilation Cervic Effacement Cervic Station none none Negative 1+ 1cm 30% - 3 Type Weight in lbs Pre/Post Dialysis Refused Weight 196.348545250106 BP Diastolic BP Location Tested BP Systolic BP Type 84 140 Fetus Heart Rate Present A 145 Fetus Movement A Yes Comments Menstrual History Last Menstrual Date Menses Monthly On Bcp Conception Prior Menses Frequency Hcg Plus Date Menarche Onset Age Genetic Screening And Infection History Question Response Note Patient's Age Will Be 35 Years Or Older At Estim ated Date of Delivery false Thalassemia (Japanese, Spanish, Mediterranean, Or Background): MCV < 80 false Neural Tube Defect (Meningomyelocele, Spina Bifi da, Or Anencephaly) false Congenital Heart Defect false Down Syndrome false Augusto-Sachs (eg, Episcopalian, Cajun, Serbian-[place]ston) f alse Elizabeth Disease false Sickle Cell Disease Or Trait () false Hemophilia Or Other Blood Disorders false Muscular Dystrophy false Cystic Fibrosis false [place]'s Chorea false Intellectual Disability/Autism false If Yes, Was Person Tested For Fragile X? false Other Inherited Genetic Or Chromosomal Disorder false Maternal Metabolic Disorder (eg, Type 1 Diabetes , PKU) false Patient Or Baby's Father Had A Child With Defects Not Listed Above false Recurrent Loss, Or A Stillbirth false Medications (including Suppl ements, Vitamins, Herbs, OTC Drugs), Illicit/Recreational Drugs, Alcohol true If Yes, Agent(s) And Strength/Dosage true Any Other Genetic History false Live With Someone With TB Or Exposed To TB false Patient Or Partner Has History Of Genital Herpes false Rash Or Viral Illness Since Last Menstrual Perio d false History Of STD, Gonorrhea, Chlamydia, HPV, Syphi lis false Other Infection History false History of HIV false History of Hepatitis false Prior GBS-infected child false Hemoglobinopathy Or Carrier false Other Structural Defect false Recent Travel History Outside of Country false Mental Retardation/Autism false Delivery Information Delivery Date Delivery Type Labor Anesthesia Weeks Gestation Incision Type Labor Labor Length Hrs Delivered By Post Complications Tubal Sterilization Discharge Date Comments Discharge Information Feeding Method Contraceptive Method Maternal HG B and HCT Levels Ob Episode Information Episode Created Date Number of Fetuses Patient Bloodtype Patient rh Status Prepregnancy Weight lbs Domestic Partner Domestic Partner Phone Father Name Label Coder Status 11/03/19 25 1 CLOSED Fetus Data First Name Last Name Admitted to NICU Weight (g) Sex Living Outcome Pediatric Complications Fetus ID Race Codes Race Delivery Type 3231.84 3 M Full Term 8544 VAGINAL Kavin Calculation Initial Kavin Date Initial Exam Date Initial Exam Provider Initial Ultrasound Date Last Menstrual Period Date Ultra Sound Weeks Gestation 0 Eighteen To Twenty Week Kavin Update Ultra Sound Date Fundal Height At Umbil Quickening Date Ultra Sound Latest Weeks Gestation Final Kavin Confirmed By Final Kavin Confirmed Date Final Kavin Date Ultra Sound Latest Days Gestation 0 0 Menstrual History Last Menstrual Date Menses Monthly On Bcp Conception Prior Menses Frequency Hcg Plus Date Menarche Onset Age Delivery Information Delivery Date Delivery Type Labor Anesthesia Weeks Gestation Incision Type Labor Labor Length Hrs Delivered By Post Complications Tubal Sterilization Discharge Date Comments 3 [facility]- idural 38 7 Discharge Information Feeding Method Contraceptive Method Maternal HG B and HCT Levels Ob Episode Information Episode Created Date Number of Fetuses Patient Bloodtype Patient rh Status Prepregnancy Weight lbs Domestic Partner Domestic Partner Phone Father Name Label Coder Status 11/03/19 25 1 CLOSED Fetus Data First Name Last Name Admitted to NICU Weight (g) Sex Living Outcome Pediatric Complications Fetus ID Race Codes Race Delivery Type 2919.77 1704 F Full Term 8546 VAGINAL Kavin Calculation Initial Kavin Date Initial Exam Date Initial Exam Provider Initial Ultrasound Date Last Menstrual Period Date Ultra Sound Weeks Gestation 0 Eighteen To Twenty Week Kavin Update Ultra Sound Date Fundal Height At Umbil Quickening Date Ultra Sound Latest Weeks Gestation Final Kavin Confirmed By Final Kavin Confirmed Date Final Kavin Date Ultra Sound Latest Days Gestation 0 0 Menstrual History Last Menstrual Date Menses Monthly On Bcp Conception Prior Menses Frequency Hcg Plus Date Menarche Onset Age Delivery Information Delivery Date Delivery Type Labor Anesthesia Weeks Gestation Incision Type Labor Labor Length Hrs Delivered By Post Complications Tubal Sterilization Discharge Date Comments 6 None 41 7 Valentina Rodgers ld Discharge Information Feeding Method Contraceptive Method Maternal HG B and HCT Levels
[2025-04-13 08:19] LABS: Hematocrit 34.1 % (36-47); Hemoglobin 11.20 g/dL (11.27-16.99); Mean Corpuscular HGB Conc 32.8 g/dL (30-55); Mean Corpuscular Hemoglobin 28.0 pg (27-33); Mean Corpuscular Volume 85.3 fl (85-98); Nucleated Red Blood Cells % 0 %; Platelet Count 278 10^3/cmm (157-399); Red Blood Count 4.00 10^6/uL (3.85-5.65); White Blood Count 12.72 10^3/uL (3.29-11.43)
[2025-04-13 08:53] LABS: Slide Review Slide Review Perform
[2025-04-13 11:16] LABS: Glucose Urine UA Negative (Normal); Nitrate Urine Negative (Negative); Specific Gravity, Urine 1.012 (1.005-1.030)
[2025-04-13 11:21] LABS: Add Urine Microscopic? YES
[2025-04-13 11:38] LABS: Alanine Aminotransferase 8 U/L (0-33); Albumin Level 3.3 g/dL (3.5-5.2); Alkaline Phosphatase 138 U/L (35-105); Blood Urea Nitrogen 7 mg/dL (6-20); Calcium 8.8 mg/dL (8.5-10.5); Carbon Dioxide 24 mmol/L (22-29); Chloride 102 mmol/L (98-107); Globulin 3.2 g/dL (1.3-4.6); Glucose 126 mg/dL (65-115); Osmolality Calculated 288 mOsm/kg (285-295); Sodium 139 mmol/L (136-145); Total Protein 6.5 g/dL (6.6-8.7); Uric Acid 4.4 mg/dL (2.4-5.7)
[2025-04-13 11:49] LABS: UPRO/UCREAT Ratio 0.58 mg/mg CR
[2025-04-13 11:51] LABS: Anion Gap 16.0 (5-19); Aspartate Amino Transferase 13 U/L (0-32); Potassium 3.0 mmol/L (3.5-5.1)
[2025-04-13] MEDS: magnesium sulfate premix 4 GM/100 ML PREMIX IV (12:33)
[2025-04-13] MEDS: magnesium sulfate premix 20 GM/500 ML BAG IV ×2 (12:57→22:47)
[2025-04-13] MEDS: labetalol 5 mg/mL SDV 20mL 20 MG IVP (13:17)
[2025-04-13] MEDS: labetalol 5 mg/mL SDV 20mL 40 MG IVP ×2 (13:45→17:49)
--- NOTE | 2025-04-13 17:37 | PM.OBGYHP ---
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 The patient was noted to have a severely elevated blood pressure soon after arrival but no other symptoms of preeclampsia at that time. The patient then had elevated pressures after Cytotec was given and then had recurrent severe blood pressures. Labs were obtained and were concerning for preeclampsia. The diagnosis of preeclampsia with severe features was made and the patient was started on magnesium and labetalol protocol. Patient denies any other symptoms of preeclampsia at this time. Patient is currently on Rebecca use did throughout her . Other complications during . Present Details : 5 Para: 2 Date of Last Menstrual Period: 07/16/24 Calculated Date of Delivery: 04/22/25 Gestational Age Based on Last Menstrual Period: 39 Labs Rubella: Immune RPR: Negative GBS: Negative L&D/Induction Specific History Indication for induction OB: post dates Planned induction method: per misoprostol protocol Review of Systems General: Reports: 10 or more systems reviewed and unremarkable except in HPI and below Medications/Allergies Home Medications ?Medication ?Instructions ?Recorded ?Confirmed ?Last Taken ?Type methadone 10 mg tablet 10 mg PO Q4H PRN Severe Pain 04/13/25 04/13/25 04/13/25 05:00 History (Scale Score 7-10) Allergies Allergy/AdvReac Type Severity Reaction Status Date / Time gabapentin AdvReac ADR-Drowsy Verified 12/28/24 09:06 PFSH 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 PFSH: Medical History Cigarette smoker motivated to quit Chronic bilateral low back pain with bilateral sciatica Acute midline low back pain with left-sided sciatica Encounter for long-term opiate analgesic use 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, unspecified cervical region Chronic cervical pain Smoker Surgical History Hx of fracture of femur Bernard placed 2008 -left removed in 2010 Hx of fracture of humerus plate placed 2009 -left Family History Denies family history of Diabetes Clotting disorder Hyperlipidemia Anesthesia complication Bleeding disorder Hypertension Stroke Social History Smoking and tobacco/nicotine status: current every day tobacco/nicotine user cigarettes Packs smoked per day: 0.5 Alcohol intake: never Substance/Drug Use: never Other Female Reproductive History: Hx Age of Menarche: 15 Duration of menses: 3-5 days Cycle Length: irregular Menstrual flow: normal/abnormal: normal History History History 4 Term 4 0 Miscarriages/Ectopic 0 Living Children 4 Vitals/I&O/Wt Last Vital Signs Temp 97.8 F 04/13/25 10:17 Pulse 88 04/13/25 17:30 Resp 18 04/13/25 16:30 BP 171/94 04/13/25 17:30 Pulse Ox 98 04/13/25 12:57 O2 Del Method Room Air 04/13/25 11:23 04/13/25 04/13/25 04/13/25 06:59 14:59 22:59 Output Total 700 / 700 350 / 1050 Balance -700 / -700 -350 / -1050 Weight last 48 hrs Weight 89.358 kg Physical Exam Const: COMMON NORMALS: no acute distress, patient oriented x3 and alert Resp: COMMON NORMALS: normal respiratory effort and No retractions Cardio: COMMON NORMALS: no JVD, regular rate and regular rhythm : MANUAL OB EXAM: dilated 1 cm, effaced 50% and station high Extremity: COMMON NORMALS: normal to inspection and no clubbing, cyanosis or edema Neuro: COMMON NORMALS: moves all extremities, no focal motor deficits and no sensory deficits noted Psych: COMMON NORMALS: mental status grossly normal and cooperative Urinary Catheter Management: Jules Latex Free: Cath Placed During This Visit: yes Urinary Catheter Date of Insertion: 04/13/25 Urinary Catheter Time of Insertion: 12:50 Data 04/13/25 07:56 04/13/25 10:55 Results Labs OB ([facility]): Obstetrics US 12/21/24 Blood Type O Positive Today Antibody Screen Negative Today Hct, (36-47) 34.1 % L Today Hgb, (11.27-16.99) 11.20 g/dL L Today Rho(D) Type Rh positive Today Plt Count, (157-399) 278 10^3/cmm Today TSH, (0.27-4.20) 0.53 uIU/mL 04/19/24 Uric Acid, (2.4-5.7) 4.4 mg/dL Today A&P Assessment and plan 1. Post-term , 40-42 weeks of gestation: Continue with induction of labor with Cytotec x 3 and augment with Pitocin afterwards if needed. 2. Pre-eclampsia in third trimester: Continue with magnesium and utilizing labetalol protocol to manage blood pressure. PDMP PDMP Reviewed: Not Reviewed Attestations Medical Necessity Statement*: Patient admitted for induction of labor. Anticipate 2 midnight stay Coding Level of Care Code Acute Code for Chg Fwd Diagnoses Post-term , 40-42 weeks of gestation O48.0 Pre-eclampsia in third trimester O14.93 Trimester: third trimester
[2025-04-13 19:42] LABS: Magnesium Level (OB Only) 5.1 mg/dL (5.0-7.5)
[2025-04-13] MEDS: oxytocin 30 UNIT/500 ML BAG IV (22:36)
[2025-04-14] VITALS (128 sets, daily range): BP systolic 96–180; BP diastolic 52–112; PULSE 66–94; RESP 16–18; TEMP 36.4–36.9; O2SAT 88–100
[2025-04-14] MEDS: labetalol 5 mg/mL SDV 20mL 40 MG IVP (03:20)
[2025-04-14] MEDS: ROPivacaine premix 200 MG/100 ML PREMIX 10 MG EPIDURAL ×2 (05:08→14:36)
--- NOTE | 2025-04-14 05:11 | P.ANESASSM_ITS ---
Pre-Anesthetic Assessment Height/Weight: Height 1.57 m Weight 89.358 kg Temp Pulse Resp BP Pulse Ox O2 Del Method 97.8 F 81 17 134/74 88 L Room Air 04/13/25 10:17 04/14/25 05:08 04/13/25 23:30 04/14/25 05:08 04/14/25 05:05 04/13/25 17:30 Preop Diagnosis: intrauterine labor epidural Familial anesthetic complications: none Was Beta Omer taken within 24 hours: N/A Was Clonidine taken within 24 hours: N/A Social Tobacco and No alcohol Exam alert, oriented x 3 and clear to auscultation bilaterally Airway Mallampati: Class II Dentition: full History/ROS No significant history except as noted Pulmonary Asthma (seasonal, does not use inhaler) CV/HEM GHtn, currently on magnesium and has received labetolol None reported Hepatic None reported GI None reported Metabolic None reported Musc/skel None reported Neuropsych None reported Anesthetic Plan ASA status: 3 Anesthesia: Anesthesia Evaluation and Regional (specify below) Risk of > 500 ml blood loss (7ml/kg in children): Yes, adequate IV access and fluids planned Medications/Allergies Home Medications ?Medication ?Instructions ?Recorded ?Confirmed ?Last Taken ?Type methadone 10 mg tablet 10 mg PO Q4H PRN Severe Pain 04/13/25 04/13/25 04/13/25 05:00 History (Scale Score 7-10) Allergies Allergy/AdvReac Type Severity Reaction Status Date / Time gabapentin AdvReac ADR-Drowsy Verified 12/28/24 09:06 Current Medications Generic Name Dose Route Start Last Admin Trade Name Josiah PRN Reason Stop Dose Admin Acetaminophen 650 mg 04/13/25 08:10 04/13/25 22:41 Acetaminophen 325 Mg Tablet PO 650 mg Q6H PRN Administration Mild pain or temp > 100.4 Dextrose/Lactated Ringer's 1,000 mls @ 125 mls/hr 04/13/25 08:15 04/14/25 04:35 Dextrose 5%-Lactated Ringers IV 65 mls/hr .Q8H ARNOLD Infusion Magnesium Sulfate 20 gm in 500 mls @ 50 mls/hr 04/13/25 12:00 04/13/25 22:47 Magnesium Sulfate Premix IV 50 mls/hr .Q10H ARNOLD Administration Oxytocin 30 unit in 500 mls @ 1 mls/hr 04/13/25 21:45 04/14/25 04:55 Pitocin IV 8 milliunit/min .Q24H ARNOLD 8 mls/hr Protocol Titration 1 MILLIUNIT/MIN Ropivacaine 200 mg in 100 mls @ 10 mls/hr 04/14/25 03:30 04/14/25 05:08 Naropin Premix EPIDURAL 10 mls/hr .Q10H ARNOLD Administration Sodium Chloride 1,000 mls @ 999 mls/hr 04/14/25 03:28 04/14/25 04:35 Sodium Chloride 0.9% IV Infused .Q1H1M PRN Infusion See label comments Labetalol HCl 20 mg 04/13/25 12:02 04/13/25 13:17 Labetalol 5 Mg/Ml Sdv 20ml IVP 20 mg PRN PRN Administration HYPERTENSION Protocol Labetalol HCl 40 mg 04/13/25 12:02 04/14/25 03:20 Labetalol 5 Mg/Ml Sdv 20ml IVP 40 mg PRN PRN Administration HYPERTENSION Protocol Methadone HCl 10 mg 04/13/25 16:05 04/13/25 23:30 Methadone 10 Mg Tablet PO 10 mg Q4H PRN Administration Severe Pain (Scale Score 7-10) PFSH Anesthesia Medical History Cigarette smoker motivated to quit Chronic bilateral low back pain with bilateral sciatica Acute midline low back pain with left-sided sciatica Encounter for long-term opiate analgesic use 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, unspecified cervical region Chronic cervical pain Smoker Surgical History Hx of fracture of femur Bernard placed 2008 -left removed in 2010 Hx of fracture of humerus plate placed 2009 -left Family History Denies family history of Diabetes Clotting disorder Hyperlipidemia Anesthesia complication Bleeding disorder Hypertension Stroke Social History Smoking and tobacco/nicotine status: current every day tobacco/nicotine user cigarettes Packs smoked per day: 0.5 Alcohol intake: never Substance/Drug Use: never Female Reproductive History Date of last menstrual period: 07/16/24 : 5 Data Anesthesia 04/13/25 07:56 04/13/25 10:55 Short CBC 04/13/25 Range/Units 07:56 WBC 12.72 H (3.29-11.43) 10^3/uL Hgb 11.20 L (11.27-16.99) g/dL Hct 34.1 L (36-47) % MCV 85.3 (85-98) fl Plt Count 278 (157-399) 10^3/cmm Neut % (Auto) 63.5 % Neut # (Auto) 8.08 H (1.8-7.7) 10^3/uL BMP 04/13/25 10:55 Sodium 139 Potassium 3.0 L Chloride 102 Carbon Dioxide 24 BUN 7 Creatinine 0.6 Glucose 126 H Calcium 8.8 Liver Function 04/13/25 Range/Units 10:55 Total Bilirubin 0.3 (0.15-1.2) mg/dL AST 13 (0-32) U/L ALT 8 (0-33) U/L Alkaline Phosphatase 138 H (35-105) U/L Albumin 3.3 L (3.5-5.2) g/dL Urine 04/13/25 Range/Units 10:55 Urine Color Yellow (Yellow) Urine Appearance Clear (CLEAR) Urine pH 7.0 (5-7) Ur Specific [place] 1.012 (1.005-1.030) Urine Protein 1+ A (Negative) Urine Glucose (UA) Negative (Normal) Urine Ketones Negative (Negative) Urine Nitrate Negative (Negative) Urine Bilirubin Negative (Negative) Ur Leukocyte Esterase Trace A (Negative) Urine RBC 6-10 (0-2) /hpf Urine WBC 0-5 (0-5) /hpf Blood Bank 04/13/25 07:56 Blood Type O Positive Rho(D) Type Rh positive Antibody Screen Negative Anesthesia Procedures Epidural Time Out Performed: Yes Consents Signed: Procedure Consent Consent: requested by attending/covering physician, from patient, risks and benefits reviewed and patient agrees to proceed Lumbar Level: L4-L5 Epidural position: sitting Epidural procedure: sterile prep of area, 1% lidocaine to numb the area, 18 g needle, negative for paresthesia passed, neg for paresthesia, test dose given, 1.5% xylocaine 1:200k epi, 0.2% Ropivacaine bolus ml (5), placed PCEA, no systemic response, sterile dressing applied, L.U.D. no apparent complications and 0.2% Ropiavacaine @ mls/hr (10) Additional Comments: 1st attempt +CSF, catheter immediately removed and pt educated. 2nd attempt at different level, HANS 5.5cm, catheter easily threaded to 5cm in the space. VS monitored throughout and remained stable, Pt educated on PLATINUM AND PALLADIUM KETTLE TENDER and reports adeqaute pain relief with epidural.
[2025-04-14] MEDS: magnesium sulfate premix 20 GM/500 ML BAG IV ×2 (07:55→17:13)
[2025-04-14] MEDS: tranexamic acid 1,000 MG/100 ML PREMIX 600 MG IV (16:52)
[2025-04-14] MEDS: ondansetron 2 mg/ML SDV 2 mL 4 MG IVP (17:14)
[2025-04-14] MEDS: labetalol 5 mg/mL SDV 20mL 20 MG IVP (17:36)
--- NOTE | 2025-04-14 17:42 | PM.OBGYPN ---
PIPE COVERER AND INSULATOR Subjective Subjective: Interval history: This is a 35-year-old G5, P4 that presented at 40 weeks 1 day for induction of labor. The patient was deemed to have severe preeclampsia soon after arrival. The patient was placed on magnesium has been continued to do her induction started with Cytotec and Pitocin. The patient had been on Pitocin overnight and had a few severe elevations of her blood pressures that responded to labetalol. Patient denies any other symptoms of preeclampsia. The patient obtained epidural and her blood pressures improved after that. Official rupture membranes was performed this morning and the patient was continued on Pitocin. The patient made very slow progress throughout the day until she was completely dilated. Labor: Station: -2 Amniotic Membrane Status: Ruptured Monitor Mode: External Contraction Pattern: Regular Vitals/I&O/Wt Last Vital Signs Temp 98.5 F 04/14/25 12:45 Pulse 90 04/14/25 17:32 Resp 16 04/14/25 15:38 BP 167/96 04/14/25 17:32 Pulse Ox 98 04/14/25 05:09 O2 Del Method Room Air 04/14/25 11:28 04/14/25 04/14/25 04/14/25 06:59 14:59 22:59 Intake Total 1592.617 / 2846.367 1045.317 / 1045.317 725.333 / 1770.650 Output Total 2415 / 4850 850 / 850 125 / 975 Balance -822.383 / -2003.633 195.317 / 195.317 600.333 / 795.650 Weight last 48 hrs Weight 89.358 kg Physical Exam Const: COMMON NORMALS: patient oriented x3 and alert Neck/C-Spine: COMMON NORMALS: no JVD Resp: COMMON NORMALS: normal respiratory effort and No retractions Cardio: COMMON NORMALS: no JVD, regular rate and regular rhythm RATE: regular rate RHYTHM: regular rhythm : MANUAL OB EXAM: dilated 1 cm, effaced 50% and station high Extremity: COMMON NORMALS: normal to inspection and no clubbing, cyanosis or edema Neuro: COMMON NORMALS: patient oriented x3, moves all extremities, no focal motor deficits and no sensory deficits noted SENSORIUM/ORIENTATION: Yes alert Psych: COMMON NORMALS: mental status grossly normal and cooperative Urinary Catheter Management: Jules Latex Free: Cath Placed During This Visit: yes Reason for Continuing Indwelling Catheter: Accurate Measurement of Urinary Output in Critically Ill Patients Urinary Catheter Date of Insertion: 04/13/25 Urinary Catheter Time of Insertion: 12:50 Data 04/13/25 07:56 04/13/25 10:55 A&P Assessment and plan 1. Post-term , 40-42 weeks of gestation: Continue with induction of labor and routine labor management 2. Pre-eclampsia in third trimester: Continue with magnesium and utilizing labetalol protocol to manage blood pressure. PDMP PDMP Reviewed: Not Reviewed Attestations Medical Necessity Statement*: Patient admitted for induction of labor. Anticipate greater than 2 midnight stay Coding Level of Care Code Acute Code for Chg Fwd Diagnoses Post-term , 40-42 weeks of gestation O48.0 Pre-eclampsia in third trimester O14.93 Trimester: third trimester
--- NOTE | 2025-04-14 17:46 | PM.DELIVERY ---
Delivery Note: Date of delivery: April 14, 2025 Pre-delivery diagnoses: Preeclampsia with severe features, term intrauterine Post-delivery diagnoses: Same, viable male Procedure: Spontaneous vaginal delivery Op report anesthesia: Epidural Delivering Physician: Dr. Amanuel Flores Estimated blood loss (mL): 450 Pre-Delivery Course: This is a 35-year-old G5, P5 that presented at 40 weeks 1 day for induction of labor. The patient was found to be having severe preeclampsia soon after arrival and was started on magnesium. The patient was given 3 doses of Cytotec followed by Pitocin with slow progression to completion. Delivery: Once patient was completely dilated patient was placed into the normal lithotomy position and was instructed to start pushing with contractions. After multiple rounds of pushing the patient was able to deliver infant's head. Downward traction anterior shoulder was finally delivered without other maneuvers. Infant was then placed onto mother's abdomen. After delay the cord was clamped and cut. Cord blood was obtained. Placenta was then delivered soon after. Review of the perineum did not demonstrate a significant perineal tear, however the patient had significant bleeding. Cytotec was given followed by an injection of Hemabate. Transaminase acid was then started. Fundal massage and manual uterine extraction was performed before bleeding was finally managed. Post-Delivery Status: Stable History History History 4 Term 4 0 Miscarriages/Ectopic 0 Living Children 4 A&P Assessment and plan 1. Preeclampsia in period: Continue with magnesium and blood pressure management. The patient did have severe blood pressure soon after delivery. Patient will be started on labetalol 200 mg twice daily 2. Spontaneous vaginal delivery: Continue with other routine care PDMP PDMP Reviewed: Not Reviewed Coding Level of Care Code Acute Code for Chg Fwd Diagnoses Preeclampsia in period O14.95 Spontaneous vaginal delivery O80
[2025-04-14 17:47] LABS: Hematocrit 36.2 % (36-47); Hemoglobin 12.10 g/dL (11.27-16.99); Mean Corpuscular HGB Conc 33.4 g/dL (30-55); Mean Corpuscular Hemoglobin 28.1 pg (27-33); Mean Corpuscular Volume 84.2 fl (85-98); Nucleated Red Blood Cells % 0 %; Platelet Count 337 10^3/cmm (157-399); Red Blood Count 4.30 10^6/uL (3.85-5.65); White Blood Count 16.37 10^3/uL (3.29-11.43)
[2025-04-14 17:50] LABS: Alanine Aminotransferase 10 U/L (0-33); Albumin Level 3.3 g/dL (3.5-5.2); Alkaline Phosphatase 151 U/L (35-105); Anion Gap 14.1 (5-19); Aspartate Amino Transferase 12 U/L (0-32); Blood Urea Nitrogen 7 mg/dL (6-20); Calcium 6.7 mg/dL (8.5-10.5); Carbon Dioxide 24 mmol/L (22-29); Chloride 105 mmol/L (98-107); Globulin 3.2 g/dL (1.3-4.6); Glucose 98 mg/dL (65-115); Osmolality Calculated 288 mOsm/kg (285-295); Potassium 3.1 mmol/L (3.5-5.1); Sodium 140 mmol/L (136-145); Total Protein 6.5 g/dL (6.6-8.7)
[2025-04-15] VITALS (20 sets, daily range): BP systolic 92–140; BP diastolic 52–87; PULSE 72–90; RESP 16; TEMP 36.7–36.9
[2025-04-15] MEDS: magnesium sulfate premix 20 GM/500 ML BAG IV ×2 (03:27→13:30)
[2025-04-15 04:51] LABS: Hematocrit 27.8 % (36-47); Hemoglobin 9.50 g/dL (11.27-16.99); Mean Corpuscular HGB Conc 34.2 g/dL (30-55); Mean Corpuscular Hemoglobin 28.4 pg (27-33); Mean Corpuscular Volume 83.2 fl (85-98); Platelet Count 296 10^3/cmm (157-399); Red Blood Count 3.34 10^6/uL (3.85-5.65); White Blood Count 15.49 10^3/uL (3.29-11.43)
[2025-04-15] MEDS: PRENATAL VIT NO.130/IRON/FOLIC 1 EACH TABLET PO (05:41)
--- NOTE | 2025-04-15 08:23 | PM.OBGYPN ---
STAB SETTER AND DRILLER Subjective Subjective: Interval history: This is a 35-year-old G5, P5 with preeclampsia with severe features that is post vaginal delivery x 1 day. Patient has had some elevations in blood pressure and has been started on labetalol twice daily and has been doing well since. Patient reports that she is having neck pain and headaches and is requesting something to assist with muscle pain. Patient's bleeding has been appropriate. Labor: Station: -2 Amniotic Membrane Status: Ruptured Monitor Mode: External Contraction Pattern: Regular Post /CS: Patient comments OB post-: tolerating diet baby status: doing well Vitals/I&O/Wt Last Vital Signs Temp 98.4 F 04/15/25 05:30 Pulse 80 04/15/25 06:03 Resp 16 04/15/25 07:15 BP 126/87 04/15/25 06:03 Pulse Ox 98 04/14/25 05:09 O2 Del Method Room Air 04/15/25 03:03 04/14/25 04/15/25 04/15/25 22:59 06:59 14:59 Intake Total 1176.033 / 2221.350 1185.667 / 3407.017 Output Total 1600 / 2450 2360 / 4810 150 / 150 Balance -423.967 / -228.650 -1174.333 / -1402.983 -150 / -150 Physical Exam Const: COMMON NORMALS: patient oriented x3 and alert Neck/C-Spine: COMMON NORMALS: no JVD Resp: COMMON NORMALS: normal respiratory effort and No retractions Cardio: COMMON NORMALS: no JVD, regular rate and regular rhythm RATE: regular rate RHYTHM: regular rhythm GI: OTHER: Uterus firm and below umbilicus Extremity: COMMON NORMALS: normal to inspection and no clubbing, cyanosis or edema Neuro: COMMON NORMALS: patient oriented x3, moves all extremities, no focal motor deficits and no sensory deficits noted SENSORIUM/ORIENTATION: Yes alert Psych: COMMON NORMALS: mental status grossly normal and cooperative Urinary Catheter Management: Jules Latex Free: Cath Placed During This Visit: yes, but has since been removed by the nurse Reason for Continuing Indwelling Catheter: Required Immobilization for Trauma or Surgery or Anesthesia Urinary Catheter Date of Insertion: 04/14/25 Urinary Catheter Time of Insertion: 17:00 Date Urinary Catheter Removed: 04/14/25 Time Urinary Catheter Discontinued: 16:09 Data 04/15/25 04:44 04/14/25 17:24 A&P Assessment and plan 1. Preeclampsia in period: Continue with magnesium and blood pressure management. Plan to stop magnesium in 24 hours unless there is continued issues with blood pressure. 2. Spontaneous vaginal delivery: Continue with other routine care PDMP PDMP Reviewed: Not Reviewed Attestations Medical Necessity Statement*: Patient admitted for induction of labor. Anticipate greater than 2 midnight stay Coding Level of Care Code Acute Code for Chg Fwd Diagnoses Preeclampsia in period O14.95 Spontaneous vaginal delivery O80
[2025-04-15 17:59] LABS: High Risk PP Hemorrhage BBK Notified
[2025-04-16 04:00] VITALS: TEMP 36.7
[2025-04-16 04:23] VITALS: BP 130/65; PULSE 77
[2025-04-16] MEDS: PRENATAL VIT NO.130/IRON/FOLIC 1 EACH TABLET PO (04:25)
[2025-04-16 09:48] VITALS: BP 125/75; PULSE 99
--- NOTE | 2025-04-16 09:55 | P.DS_ITS ---
Discharge Providers LONG DISTANCE BILLING OPERATOR Date of Admission: 04/13/25 07:10 Date of Discharge: 04/16/25 Attending Provider at Admission: Russell Flores MD Attending Provider at Discharge: Russell Flores MD Primary Care Provider: Russell Flores MD Diagnoses at Discharge Discharge Diagnosis 1. Preeclampsia in period: 2. Spontaneous vaginal delivery: Reason for Visit Reason for Visit: IOL Brief History: This is a 35-year-old G5, P5 that presented at 40 weeks 1 day for induction of labor. Hospital Course Hospital Course Soon after arrival the patient was deemed to have severe preeclampsia and was started on magnesium during her induction. Patient underwent successful induction and delivered a viable male without significant complication. The patient had multiple severe blood pressure readings and required multiple doses of labetalol and eventually was started on p.o. labetalol twice daily. Patient was continued on magnesium for 24 hours . Patient was no longer having issues with blood pressure so the magnesium was discontinued. Blood pressures have remained well in normal limits since stopping the magnesium. Patient's bleeding has been appropriate and the patient has been up and ambulating since magnesium has been discontinued. Patient has no significant concerns today and rest of her care has been unremarkable. Information Peripartum Data: Delivery Method: Vaginal Laceration description: None complications: none Physical Exam Const: COMMON NORMALS: patient oriented x3 and alert Neck/C-Spine: COMMON NORMALS: no JVD Resp: COMMON NORMALS: normal respiratory effort and No retractions Cardio: COMMON NORMALS: no JVD, regular rate and regular rhythm RATE: regular rate RHYTHM: regular rhythm GI: OTHER: Uterus firm and below umbilicus Extremity: COMMON NORMALS: normal to inspection and no clubbing, cyanosis or edema Neuro: COMMON NORMALS: patient oriented x3, moves all extremities, no focal motor deficits and no sensory deficits noted SENSORIUM/ORIENTATION: Yes alert Psych: COMMON NORMALS: mental status grossly normal and cooperative Urinary Catheter Management: Jules Latex Free: Cath Placed During This Visit: yes, but has since been removed by the nurse Reason for Continuing Indwelling Catheter: Decision to DC Catheter Urinary Catheter Date of Insertion: 04/14/25 Urinary Catheter Time of Insertion: 17:00 Date Urinary Catheter Removed: 04/15/25 Time Urinary Catheter Discontinued: 16:07 History History History 4 Term 4 0 Miscarriages/Ectopic 0 Living Children 4 Discharge Data Studies Completed and Pending Laboratory Results WBC 15.49 10^3/uL (3.29-11.43) H 04/15/25 04:44 RBC 3.34 10^6/uL (3.85-5.65) L 04/15/25 04:44 Hgb 9.50 g/dL (11.27-16.99) L 04/15/25 04:44 Hct 27.8 % (36-47) L 04/15/25 04:44 MCV 83.2 fl (85-98) L 04/15/25 04:44 MCH 28.4 pg (27-33) 04/15/25 04:44 MCHC 34.2 g/dL (30-55) 04/15/25 04:44 RDW 13.9 % (12.1-15.1) 04/15/25 04:44 Plt Count 296 10^3/cmm (157-399) 04/15/25 04:44 MPV 10.5 fL (7.4-10.4) H 04/15/25 04:44 Neut % (Auto) 76.6 % 04/14/25 17:24 Lymph % (Auto) 15.5 % 04/14/25 17:24 [place] % (Auto) 6.8 % 04/14/25 17:24 Eos % (Auto) 0.4 % 04/14/25 17:24 Baso % (Auto) 0.2 % 04/14/25 17:24 Neut # (Auto) 12.52 10^3/uL (1.8-7.7) H 04/14/25 17:24 Lymph # (Auto) 2.5 10^3/uL (0.8-4.8) 04/14/25 17:24 [place] # (Auto) 1.1 10^3/uL (0.2-0.9) H 04/14/25 17:24 Eos # (Auto) 0.1 10^3/uL (0.0-0.8) 04/14/25 17:24 Baso # (Auto) 0.0 10^3/uL (0.0-0.1) 04/14/25 17:24 Nucleated RBC % (auto) 0 % 04/14/25 17: Nucleated RBCs # 0.0 /100WBC 04/14/25 17:24 Sodium 140 mmol/L (136-145) 04/14/25 17:24 Potassium 3.1 mmol/L (3.5-5.1) L 04/14/25 17:24 Chloride 105 mmol/L (98-107) 04/14/25 17:24 Carbon Dioxide 24 mmol/L (22-29) 04/14/25 17:24 Anion Gap 14.1 (5-19) 04/14/25 17:24 BUN 7 mg/dL (6-20) 04/14/25 17:24 Creatinine 0.7 mg/dL (0.5-0.9) 04/14/25 17:24 GFR Calculation 95.8 mL/min (90-130) 04/14/25 17:24 Glucose 98 mg/dL (65-115) 04/14/25 17:24 Calculated Osmolality 288 mOsm/kg (285-295) 04/14/25 17:24 Uric Acid 4.4 mg/dL (2.4-5.7) 04/13/25 10:55 Calcium 6.7 mg/dL (8.5-10.5) L 04/14/25 17:24 Magnesium 5.1 mg/dL (5.0-7.5) 04/13/25 18:52 Total Bilirubin 0.4 mg/dL (0.15-1.2) 04/14/25 17:24 AST 12 U/L (0-32) 04/14/25 17:24 ALT 10 U/L (0-33) 04/14/25 17:24 Alkaline Phosphatase 151 U/L (35-105) H 04/14/25 17:24 Lactate Dehydrogenase 249 U/L (135-214) H 04/13/25 10:55 Total Protein 6.5 g/dL (6.6-8.7) L 04/14/25 17:24 Albumin 3.3 g/dL (3.5-5.2) L 04/14/25 17:24 Globulin 3.2 g/dL (1.3-4.6) 04/14/25 17:24 Urine Color Yellow (Yellow) 04/13/25 10:55 Urine Appearance Clear (CLEAR) 04/13/25 10:55 Urine pH 7.0 (5-7) 04/13/25 10:55 Ur Specific [place] 1.012 (1.005-1.030) 04/13/25 10:55 Urine Protein 1+ (Negative) A 04/13/25 10:55 Urine Glucose (UA) Negative (Normal) 04/13/25 10:55 Urine Ketones Negative (Negative) 04/13/25 10:55 Urine Blood Non-haemolysed trace (Negative) 04/13/25 10:55 Urine Nitrate Negative (Negative) 04/13/25 10:55 Urine Bilirubin Negative (Negative) 04/13/25 10:55 Urine Urobilinogen 0.2 mg/dL (Negative) 04/13/25 10:55 Ur Leukocyte Esterase Trace (Negative) A 04/13/25 10:55 Urine RBC 6-10 /hpf (0-2) 04/13/25 10:55 Urine WBC 0-5 /hpf (0-5) 04/13/25 10:55 Ur Squamous Epith Cells 0-5 /hpf (0-5) 04/13/25 10:55 Amorphous Sediment Not Reportable 04/13/25 10:55 Urine Bacteria None seen /hpf (NONE) 04/13/25 10:55 Hyaline Casts 0.40 /lpf 04/13/25 10:55 U Random Total Protein 42 mg/dL 04/13/25 10:55 Urine Creatinine 73 mg/dL (28-217) 04/13/25 10:55 Protein/Creatinin Ratio 0.58 mg/mg CR 04/13/25 10:55 Blood Type O Positive 04/13/25 07:56 Rho(D) Type Rh positive 04/13/25 07:56 Antibody Screen Negative 04/13/25 07:56 Vitals Last Vital Signs Temp 98.1 F 04/16/25 04:00 Pulse 99 04/16/25 09:48 Resp 16 04/15/25 20:40 BP 125/75 04/16/25 09:48 Pulse Ox 98 04/14/25 05:09 O2 Del Method Room Air 04/15/25 03:03 Results Labs OB ([facility]): Obstetrics US 12/21/24 Blood Type O Positive 04/13/25 Antibody Screen Negative 04/13/25 Hct, (36-47) 27.8 % L 04/15/25 Hgb, (11.27-16.99) 9.50 g/dL L 04/15/25 Rho(D) Type Rh positive 04/13/25 Plt Count, (157-399) 296 10^3/cmm 04/15/25 TSH, (0.27-4.20) 0.53 uIU/mL 04/19/24 Uric Acid, (2.4-5.7) 4.4 mg/dL 04/13/25 Discharge Plan Discharge Patient Disposition: Home Condition: Stable Prescriptions: New labetalol 200 mg Tablet 200 mg PO BID Qty: 60 0RF Continued methadone 10 mg tablet 10 mg PO Q4H PRN (Reason: Severe Pain (Scale Score 7-10)) Discharge Order = DC NOW: Discharge Order (Routine); Ordered 04/16/25 Ordered By: Russell Flores Discharge Diet: Usual diet Discharge Activity: Limit activity as instructed Patient Instructions: Depression (DC), Bleeding (ED), Preeclampsia and Eclampsia After Delivery (GEN), Hemorrhage (DC), OB Discharge Report, OB Food/Drug Interaction Guide, Opioid Safety, OB Home Care, OB Proud Parent Packet, Patient Portal & Eric Instructions Discharge Attestations LONG DISTANCE BILLING OPERATOR Time Spent in Discharge Care*: less than 30 min Coding Level of Care Code Acute Code for Chg Fwd Diagnoses Preeclampsia in period O14.95 Spontaneous vaginal delivery O80
[2025-04-16 10:26] VITALS: TEMP 36.9
[2025-04-16 11:39] VITALS: BP 111/55; PULSE 67
== END 2025-04-16 11:46 | disposition home or self-care (01) | DRG 806 ==
PROVIDERS: Admitting Provider Family Medicine; PCP Family Medicine; Visit Provider Family Medicine
DX: O14.14 Severe pre-eclampsia complicating childbirth (principal); M50.00 Cervical disc disorder with myelopathy, unspecified cervical region; Z37.0 Single live birth; Z3A.40 40 weeks gestation of pregnancy; O99.334 Smoking (tobacco) complicating childbirth; F17.210 Nicotine dependence, cigarettes, uncomplicated; O75.89 Other specified complications of labor and delivery; G89.29 Other chronic pain; M54.42 Lumbago with sciatica, left side; M54.41 Lumbago with sciatica, right side
CPT/HCPCS: 36415; 51702; 59025; 59409; 80053; 81001; 82570; 83615; 83735; 84156; 84550; 85025; 85027; 86850; 86900; 96372; J2405; J2590; J2795; J3475; J3490; J7030; J7121; J9999